=== PATIENT | male | born 1980 | race Caucasian/White ===

== ENCOUNTER 2017-04-22 12:17 | Emergency (ER) | payer SELFPAY ==
--- NOTE | 2017-04-22 14:07 | ED ---
Medical Screening - HPI Summary HPI Summary: Patient presents with request for blood work and EKG prior to admission into [place], [place] Rehab facility for drug and alcohol use. Denies chest pain, palpitations, SOB, CARRANZA, or pain at this time. Family history of cardiac issues, and no personal history of anything of significance. History of hepatitis, denies allergies or medications. - History of Current Complaint Chief Complaint: EDGeneral Stated Complaint: NEEDS TESTING FOR DETOX Time Seen by Provider: 04/22/17 12:28 PMH/Surg Hx/FS Hx/Imm Hx Previously Healthy: Yes Endocrine/Hematology History: Denies: Hx Diabetes, Hx Thyroid Disease Cardiovascular History: Denies: Hx Hypertension Respiratory History: Denies: Hx Asthma, Hx Chronic Obstructive Pulmonary Disease (COPD) GI History: Denies: Hx Ulcer - Surgical History Surgery Procedure, Year, and Place: LEFT SHOULDER SURGERY - Immunization History Hx Pertussis Vaccination: No Immunizations Up to Date: Unable to Obtain/Confirm Infectious Disease History: Yes Infectious Disease History: Reports: Hx Hepatitis - ? hep c Denies: Hx Human Immunodeficiency Virus (HIV), Traveled Outside the in Last 30 Days - Family History Known Family History: Positive: Cardiac Disease, Hypertension - Social History Occupation: Unemployed Lives: Alone Alcohol Use: Weekly Hx Substance Use: Yes Substance Use Type: Reports: None, Heroin, Synthetic Drugs Substance Use Comment - Amount & Last Used: heroin last injected 04/21/17 Hx Tobacco Use: Yes Smoking Status (MU): Heavy Every Day Tobacco Smoker Review of Systems Constitutional: Negative Eyes: Negative Respiratory: Negative Gastrointestinal: Negative Positive: no symptoms reported, see HPI Musculoskeletal: Negative Neurological: Negative Positive: Anxious All Other Systems Reviewed And Are Negative: Yes Physical Exam Triage Information Reviewed: Yes Vital Signs On Initial Exam: Initial Vitals Temp Pulse Resp BP Pulse Ox 97.9 F 76 16 135/80 96 04/22/17 12:21 04/22/17 12:21 04/22/17 12:21 04/22/17 12:21 04/22/17 12:21 Vital Signs Reviewed: Yes Appearance: Positive: Well-Appearing, Well-Nourished Skin: Positive: Warm, Skin Color Reflects Adequate Perfusion Head/Face: Positive: Normal Head/Face Inspection Eyes: Positive: EOMI, RADHA, Conjunctiva Clear Neck: Positive: Supple, No Lymphadenopathy Respiratory/Lung Sounds: Positive: Clear to Auscultation, Breath Sounds Present Cardiovascular: Positive: Normal, RRR, Pulses are Symmetrical in both Upper and Lower Extremities Musculoskeletal: Positive: Normal, Strength/ROM Intact Neurological: Positive: Sensory/Motor Intact, Alert, Oriented to Person Place, Time, Speech Normal Psychiatric: Positive: Normal AVPU Assessment: Alert - [place] Coma Scale Best Eye Response: 4 - Spontaneous Best Motor Response: 6 - Obeys Commands Best Verbal Response: 5 - Oriented Diagnostics - Vital Signs Vital Signs Temp Pulse Resp BP Pulse Ox 04/22/17 12:28 97.9 F 76 16 135/80 98 04/22/17 12:21 97.9 F 76 16 135/80 96 - Laboratory Result Diagrams: 04/22/17 14:13 Lab Statement: Any lab studies that have been ordered have been reviewed, and results considered in the medical decision making process. Course/Dx - Course Course Of Treatment: Patient presents with request for blood work for entry into rehab program. Denies pain or any concerns at this time. Otherwise healthy. Last heroin use 2 days ago. CBC, CMP and EKG sent to [place], [place] - Diagnoses Provider Diagnoses: Routine lab draw Discharge - Discharge Plan Condition: Stable Disposition: HOME Referrals: Non Staff,Doctor [Primary Care Provider] - Additional Instructions: Follow up with PCP as needed
[2017-04-22 14:38] VITALS: BP 129/74
[2017-04-22 14:54] LABS: Albumin 4.1 g/dL (3.2-5.2); Calcium 9.2 mg/dL (8.6-10.3); EGFR African American 146.2 (>60); EGFR Non-African American 113.7 (>60); Globulin 3.5 g/dL (2-4); Potassium 4.2 mmol/L (3.5-5.0); Total Bilirubin 0.4 mg/dL (0.2-1.0); Total Protein 7.6 g/dL (6.4-8.9)
== END 2017-04-22 14:37 | disposition home or self-care (01) ==
LOC: ED 12:17
DX: Z04.8 Encounter for examination and observation for other specified reasons (principal); R07.9 Chest pain, unspecified; F41.9 Anxiety disorder, unspecified; F17.210 Nicotine dependence, cigarettes, uncomplicated
CPT/HCPCS: 36415; 80053; 93005; 99282

== ENCOUNTER → 2017-04-23 13:25 | Emergency (ER) | payer SELFPAY ==
[2017-04-23 13:35] VITALS: BP 135/82
[2017-04-23 14:01] LABS: Hematocrit 46 % (42-52); Hemoglobin 15.2 g/dl (14.0-18.0); Mean Corpuscular HGB Conc 33 g/dl (31-36); Mean Corpuscular Hemoglobin 29 pg (27-31); Mean Corpuscular Volume 88 fL (80-94); Mean Platelet Volume 9 um3 (7.4-10.4); Red Cell Distribution Width 15 % (10.5-15); White Blood Count 9.9 10^3/ul (3.5-10.8)
--- NOTE | 2017-04-23 17:56 | ED ---
Medical Screening - HPI Summary HPI Summary: Patient presents for blood work. He was here yesterday, but was sent home prior to results. CBC clotted and he returns today for another blood draw. He continues to deny heroin use, ETOH or other drugs. He denies SOB. Smoker. Does not complain of pain, chest pain, SOB or other symptoms. - History of Current Complaint Chief Complaint: EDGeneral Stated Complaint: BLOOD WORK Time Seen by Provider: 04/23/17 13:55 PMH/Surg Hx/FS Hx/Imm Hx Previously Healthy: Yes Endocrine/Hematology History: Denies: Hx Diabetes, Hx Thyroid Disease Cardiovascular History: Denies: Hx Hypertension Respiratory History: Denies: Hx Asthma, Hx Chronic Obstructive Pulmonary Disease (COPD) GI History: Denies: Hx Ulcer - Surgical History Surgery Procedure, Year, and Place: LEFT SHOULDER SURGERY Infectious Disease History: Reports: Hx Hepatitis - ? hep c Denies: Hx Human Immunodeficiency Virus (HIV), Traveled Outside the [place] in Last 30 Days - Family History Known Family History: Positive: Cardiac Disease, Hypertension - Social History Alcohol Use: Weekly Hx Substance Use: Yes Substance Use Type: Reports: None, Heroin, Synthetic Drugs Substance Use Comment - Amount & Last Used: heroin last injected 04/21/17 Hx Tobacco Use: Yes Smoking Status (MU): Heavy Every Day Tobacco Smoker Review of Systems Constitutional: Negative Eyes: Negative Cardiovascular: Negative Musculoskeletal: Negative Skin: Negative Neurological: Negative Psychological: Normal All Other Systems Reviewed And Are Negative: Yes Physical Exam Triage Information Reviewed: Yes Vital Signs On Initial Exam: Initial Vitals Temp Pulse Resp BP Pulse Ox 98.1 F 100 18 135/82 98 04/23/17 13:33 04/23/17 13:33 04/23/17 13:33 04/23/17 13:33 04/23/17 13:33 Vital Signs Reviewed: Yes Appearance: Positive: Well-Appearing, Well-Nourished Skin: Positive: Warm, Skin Color Reflects Adequate Perfusion Head/Face: Positive: Normal Head/Face Inspection Eyes: Positive: EOMI, RADHA, Conjunctiva Clear Neck: Positive: Supple, No Lymphadenopathy Respiratory/Lung Sounds: Positive: Clear to Auscultation, Breath Sounds Present Cardiovascular: Positive: Normal, RRR Musculoskeletal: Positive: Normal, Strength/ROM Intact Neurological: Positive: Sensory/Motor Intact, Alert, Oriented to Person Place, Time Psychiatric: Positive: Normal AVPU Assessment: Alert Diagnostics - Vital Signs Vital Signs Temp Pulse Resp BP Pulse Ox 04/23/17 13:33 98.1 F 100 18 135/82 98 - Laboratory Lab Results: Lab Results 04/23/17 Range/Units 13:44 WBC 9.9 (3.5-10.8) 10^3/ul RBC 5.20 (4.0-5.4) 10^6/ul Hgb 15.2 (14.0-18.0) g/dl Hct 46 (42-52) % MCV 88 (80-94) fL MCH 29 (27-31) pg MCHC 33 (31-36) g/dl RDW 15 (10.5-15) % Plt Count 198 (150-450) 10^3/ul MPV 9 (7.4-10.4) um3 Neut % (Auto) 47.6 (38-83) % Lymph % (Auto) 41.7 (25-47) % [place] % (Auto) 8.7 (1-9) % Eos % (Auto) 1.3 (0-6) % Baso % (Auto) 0.7 (0-2) % Absolute Neuts (auto) 4.7 (1.5-7.7) 10^3/ul Absolute Lymphs (auto) 4.1 (1.0-4.8) 10^3/ul Absolute Monos (auto) 0.9 H (0-0.8) 10^3/ul Absolute Eos (auto) 0.1 (0-0.6) 10^3/ul Absolute Basos (auto) 0.1 (0-0.2) 10^3/ul Absolute Nucleated RBC 0.01 10^3/ul Nucleated RBC % 0.1 Result Diagrams: 04/23/17 13:44 Lab Statement: Any lab studies that have been ordered have been reviewed, and results considered in the medical decision making process. Course/Dx - Course Course Of Treatment: CBC drawn. Results faxed over to treatment facility. Patient OK for discharge. - Diagnoses Provider Diagnoses: Routine lab draw Discharge - Discharge Plan Condition: Stable Disposition: HOME Patient Education Materials: Cervical Strain (ED) Referrals: Non Staff,Doctor [Primary Care Provider] - Additional Instructions: Dx. Cervical Strain Ibuprofen or Tylenol three times daily with meals for discomfort. Return to ED if symptoms worsen or fail to improve, notice worsening swelling, warmth or redness around the joint, develop fever, or pain is uncontrolled with OTC medications. Moist heat to the area for comfort. Warm showers or baths may improve symptoms. It is important to remain mobile as tolerated to prevent stiffening of the joints and delay healing. Follow up with your PCP. If symptoms remain for > 6 weeks, please seek special medical attention from an orthopedic physician.
== END | disposition home or self-care (01) ==
LOC: ED 13:25
DX: Z04.8 Encounter for examination and observation for other specified reasons (principal); S16.1XXA Strain of muscle, fascia and tendon at neck level, initial encounter; X58.XXXA Exposure to other specified factors, initial encounter; Y93.9 Activity, unspecified; Y92.9 Unspecified place or not applicable; F17.210 Nicotine dependence, cigarettes, uncomplicated
CPT/HCPCS: 36415; 85025; 99281

== ENCOUNTER 2017-05-05 12:47 | Emergency (ER) | payer SELFPAY ==
[2017-05-05 12:52] VITALS: BP 124/69
[2017-05-05 13:26] LABS: Hematocrit 42 % (42-52); Hemoglobin 14.2 g/dl (14.0-18.0); Mean Corpuscular HGB Conc 34 g/dl (31-36); Mean Corpuscular Hemoglobin 29 pg (27-31); Mean Corpuscular Volume 86 fL (80-94); Mean Platelet Volume 9 um3 (7.4-10.4); Red Blood Count 4.86 10^6/ul (4.0-5.4); Red Cell Distribution Width 15 % (10.5-15); White Blood Count 7.3 10^3/ul (3.5-10.8)
[2017-05-05 13:40] LABS: Albumin 4.4 g/dL (3.2-5.2); BUN/Creatinine Ratio 16.9 (8-20); Calcium 9.7 mg/dL (8.6-10.3); EGFR African American 134.1 (>60); EGFR Non-African American 104.3 (>60); Globulin 3.4 g/dL (2-4); Potassium 3.7 mmol/L (3.5-5.0); Total Bilirubin 0.4 mg/dL (0.2-1.0); Total Protein 7.8 g/dL (6.4-8.9)
--- NOTE | 2017-05-05 14:11 | ED ---
Carol Pierec SooYoung, scribed for Du Wood MD on 05/05/17 at 1301 . Medical Screening - HPI Summary HPI Summary: A 37 y/o M presents to ED for a detox/rehab medical clearance at [facility] requesting an EKG and CBC, CMP. Denies CP, SOB. Pt last seen in ED on 04/23/17. Smoker. Heroin abuse, last used today. PMHx: Hep C. - History of Current Complaint Chief Complaint: EDGeneral Stated Complaint: LAB/EKG-REHAB CLEARANCE Time Seen by Provider: 05/05/17 12:57 Associated Signs and Symptoms: Negative PMH/Surg Hx/FS Hx/Imm Hx Previously Healthy: No Endocrine/Hematology History: Denies: Hx Diabetes, Hx Thyroid Disease Cardiovascular History: Denies: Hx Hypertension Respiratory History: Denies: Hx Asthma, Hx Chronic Obstructive Pulmonary Disease (COPD) GI History: Reports: Hx Gastroesophageal Reflux Disease Denies: Hx Ulcer Musculoskeletal History: Reports: Hx Back Problems - Surgical History Surgery Procedure, Year, and Place: LEFT SHOULDER SURGERY Infectious Disease History: No Infectious Disease History: Reports: Hx Hepatitis - ? hep c, Hx of Known/ Suspected MRSA Denies: Hx Human Immunodeficiency Virus (HIV), Traveled Outside the [place] in Last 30 Days - Family History Known Family History: Positive: Cardiac Disease, Hypertension - Social History Occupation: Unemployed Lives: With Family Alcohol Use: Weekly Hx Substance Use: Yes Substance Use Type: Reports: None, Heroin, Synthetic Drugs Substance Use Comment - Amount & Last Used: heroin last injected 04/21/17 Hx Tobacco Use: Yes Smoking Status (MU): Heavy Every Day Tobacco Smoker Review of Systems Negative: Fever Negative: Cough All Other Systems Reviewed And Are Negative: Yes Physical Exam - Summary Physical Exam Summary: The patient is well-nourished in no acute distress and in no acute pain. The skin is warm and dry and skin color reflects adequate perfusion. HEENT: The head is normocephalic and atraumatic. The pupils are equal and reactive, not pinpoint. The conjunctivae are clear and without drainage. Nares are patent and without drainage. Mouth reveals moist mucous membranes and the throat is without erythema and exudate. The external ears are intact. Neck is supple with full range of motion and non-tender. There are no carotid bruits. Respiratory: Chest is non-tender. Lungs are clear to auscultation and breath sounds are symmetrical and equal. Cardiovascular: Heart is regular rate and rhythm. There is no murmur or rub auscultated. There is no peripheral edema and pulses are symmetrical and equal. Abdomen: The abdomen is soft and non-tender. There are normal bowel sounds heard in all four quadrants and there is no organomegaly palpated. Musculoskeletal: Track olsen on arm. There is no back pain noted. Extremities are non-tender with full range of motion. There is good capillary refill. There is no peripheral edema or calf tenderness elicited. Neurological: Patient is alert and oriented to person, place and time. The patient has symmetrical motor strength in all four extremities. Cranial nerves are grossly intact. Deep tendon reflexes are symmetrical and equal in all four extremities. No focal deficit noted. Psychiatric: The patient has an appropriate affect and does not exhibit any anxiety or depression. Triage Information Reviewed: Yes Vital Signs On Initial Exam: Initial Vitals Temp Pulse Resp BP Pulse Ox 97.5 F 101 17 124/69 98 05/05/17 12:49 05/05/17 12:49 05/05/17 12:49 05/05/17 12:49 05/05/17 12:49 Vital Signs Reviewed: Yes - Jamie Coma Scale Coma Scale Total: 15 Diagnostics - Vital Signs Vital Signs Temp Pulse Resp BP Pulse Ox 05/05/17 12:55 97.5 F 101 17 124/69 97 05/05/17 12:49 97.5 F 101 17 124/69 98 - Laboratory Lab Results: Lab Results 05/05/17 05/05/17 Range/Units 13:17 13:17 WBC 7.3 (3.5-10.8) 10^3/ul RBC 4.86 (4.0-5.4) 10^6/ul Hgb 14.2 (14.0-18.0) g/dl Hct 42 (42-52) % MCV 86 (80-94) fL MCH 29 (27-31) pg MCHC 34 (31-36) g/dl RDW 15 (10.5-15) % Plt Count 240 (150-450) 10^3/ul MPV 9 (7.4-10.4) um3 Neut % (Auto) 52.5 (38-83) % Lymph % (Auto) 35.4 (25-47) % [place] % (Auto) 9.4 H (1-9) % Eos % (Auto) 2.0 (0-6) % Baso % (Auto) 0.7 (0-2) % Absolute Neuts (auto) 3.8 (1.5-7.7) 10^3/ul Absolute Lymphs (auto) 2.6 (1.0-4.8) 10^3/ul Absolute Monos (auto) 0.7 (0-0.8) 10^3/ul Absolute Eos (auto) 0.1 (0-0.6) 10^3/ul Absolute Basos (auto) 0 (0-0.2) 10^3/ul Absolute Nucleated RBC 0.01 10^3/ul Nucleated RBC % 0.1 Sodium 132 L (133-145) mmol/L Potassium 3.7 (3.5-5.0) mmol/L Chloride 98 L (101-111) mmol/L Carbon Dioxide 30 (22-32) mmol/L Anion Gap 4 (2-11) mmol/L BUN 14 (6-24) mg/dL Creatinine 0.83 (0.67-1.17) mg/dL Est GFR ( Amer) 134.1 (>60) Est GFR (Non-Af Amer) 104.3 (>60) BUN/Creatinine Ratio 16.9 (8-20) Glucose 131 H (70-100) mg/dL Calcium 9.7 (8.6-10.3) mg/dL Total Bilirubin 0.40 (0.2-1.0) mg/dL AST 92 H (13-39) U/L ALT 160 H (7-52) U/L Alkaline Phosphatase 110 H (34-104) U/L Total Protein 7.8 (6.4-8.9) g/dL Albumin 4.4 (3.2-5.2) g/dL Globulin 3.4 (2-4) g/dL Albumin/Globulin Ratio 1.3 (1-3) Result Diagrams: 05/05/17 13:17 05/05/17 13:17 Lab Statement: Any lab studies that have been ordered have been reviewed, and results considered in the medical decision making process. - EKG 1305 Cardiac Rate: NL - 87bpm EKG Rhythm: Sinus Rhythm ST Segment: Normal - no ST elevation Course/Dx - Diagnoses Provider Diagnoses: medical clearance for detoxification Discharge - Discharge Plan Condition: Stable Disposition: HOME Patient Education Materials: Medical Clearance for Substance Abuse Treatment ( ED) Referrals: Non Staff,Doctor [Primary Care Provider] - Additional Instructions: Go to detox/rehab as planned. The documentation as recorded by the Carol wallace SooYoung accurately reflects the service I personally performed and the decisions made by me, Du Wood MD.
== END 2017-05-05 13:53 | disposition home or self-care (01) ==
LOC: ED 12:47
DX: Z02.89 Encounter for other administrative examinations (principal); F17.210 Nicotine dependence, cigarettes, uncomplicated; F11.10 Opioid abuse, uncomplicated
CPT/HCPCS: 36415; 80053; 85025; 93005; 99282

== ENCOUNTER 2019-01-14 18:30 | Emergency (ER) | payer OTHER ==
--- NOTE | 2019-01-14 18:37 | ED ---
Substance Abuse/Use - HPI Summary HPI Summary: 38 year-old male presents after overdosing on heroin. narcan was administered by a bystander. He denies any shortness of breath now. No abdominal pain. No nausea or vomiting. He is alert and oriented and wants to leave. He states he has narcan at home and has a friend that can watch him. he does not want detox. denies any other substance. denies any si/hi. - History Of Current Complaint Stated Complaint: OVERDOSE PER EMS Time Seen by Provider: 01/14/19 18:33 - Allergies/Home Medications Allergies/Adverse Reactions: Allergies Allergy/AdvReac Type Severity Reaction Status Date / Time Penicillins Allergy Itching Verified 01/14/19 18:36 PMH/Surg Hx/FS Hx/Imm Hx Endocrine/Hematology History: Denies: Hx Diabetes, Hx Thyroid Disease Cardiovascular History: Denies: Hx Hypertension Respiratory History: Denies: Hx Asthma, Hx Chronic Obstructive Pulmonary Disease (COPD) GI History: Reports: Hx Gastroesophageal Reflux Disease Denies: Hx Ulcer Musculoskeletal History: Reports: Hx Back Problems - Surgical History Surgery Procedure, Year, and Place: LEFT SHOULDER SURGERY Infectious Disease History: Reports: Hx Hepatitis - ? hep c, Hx of Known/ Suspected MRSA Denies: Hx Human Immunodeficiency Virus (HIV) - Family History Known Family History: Positive: Cardiac Disease, Hypertension - Social History Alcohol Use: Weekly Hx Substance Use: Yes Substance Use Type: Reports: None, Heroin, Synthetic Drugs Substance Use Comment - Amount & Last Used: heroin last injected 04/21/17 Hx Tobacco Use: Yes Smoking Status (MU): Heavy Every Day Tobacco Smoker Review of Systems Negative: Fever Negative: Chest Pain Negative: Shortness Of Breath All Other Systems Reviewed And Are Negative: Yes Physical Exam Triage Information Reviewed: Yes Vital Signs Reviewed: Yes Appearance: Positive: Well-Appearing Skin: Positive: Warm, Dry Head/Face: Positive: Normal Head/Face Inspection Eyes: Positive: Normal, Conjunctiva Clear ENT: Positive: Pharynx normal Respiratory/Lung Sounds: Positive: Clear to Auscultation, Breath Sounds Present Cardiovascular: Positive: Normal, RRR Abdomen Description: Positive: Nontender, Soft Bowel Sounds: Positive: Present Musculoskeletal: Positive: Normal Neurological: Positive: Normal Psychiatric: Positive: Normal Course/Dx - Course Course Of Treatment: 38 year-old male presents after overdosing on heroin. narcan was administered by a bystander. He denies any shortness of breath now. No abdominal pain. No nausea or vomiting. He is alert and oriented and wants to leave. He states he has narcan at home and has a friend that can watch him. he does not want detox. on exam has normal physical exam. patient is refusing all medical treatment and is alert and orientated at this time so will discharge. - Diagnoses Differential Diagnosis/HQI/PQRI: Positive: Alcohol Abuse, Other - opioid overdose Provider Diagnoses: Heroin overdose Discharge - Sign-Out/Discharge Documenting (check all that apply): Patient Departure Patient Received Moderate/Deep Sedation with Procedure: No - Discharge Plan Condition: Stable Disposition: HOME Patient Education Materials: Opioid Use Disorder (ED) Referrals: No Primary Care Phys,NOPCP [Primary Care Provider] - Additional Instructions: Use narcan if any signs of respiratory distress Follow up with REACH if would like to stop using Return to ED if develop any new or worsening symptoms - Billing Disposition and Condition Condition: STABLE Disposition: Home
[2019-01-14 18:46] VITALS: BP 00/0
== END 2019-01-14 18:41 | disposition home or self-care (01) ==
LOC: ED 18:30
DX: T40.1X1A Poisoning by heroin, accidental (unintentional), initial encounter (principal); Z72.0 Tobacco use; K21.9 Gastro-esophageal reflux disease without esophagitis
CPT/HCPCS: 99281